=== PATIENT | female | born 1955 | race Caucasian/White ===

== ENCOUNTER 2017-09-11 21:53 | Emergency (ER) | payer OTHER ==
[2017-09-11] MEDS ORDERED: NA CHLORIDE 0.9% 1,000 ML ONE (23:04)
[2017-09-11] MEDS ORDERED: CEFTRIAXONE/SWI 1gm 1 GM/10 ML SYR ONE (23:05)
[2017-09-11 23:13] LABS: Absolute Lymphocytes (CBC) 3.8 K/uL (0.7-4.9); Absolute Monocytes 0.6 K/uL (0.1-1.3); Absolute Neutrophil 4.7 K/uL (1.8-8.0); Basophils % 1.1 % (0-1.3); Eosinophils % 3.1 % (0-4.4); Hematocrit 40.7 % (36.0-45.0); Lymphocytes % 40.3 % (15.3-44.8); MCV 91.7 fL (80-100); Monocytes % 6.4 % (3.3-12.3); RBC Red Blood Cell Count 4.44 M/uL (3.86-4.86)
[2017-09-11] MEDS ORDERED: FENTANYL CITR 100 MCG/2 ML ONE (23:34)
[2017-09-11] MEDS ORDERED: ONDANSETRON 4 MG/2 ML VIAL ONE (23:34)
--- NOTE | 2017-09-11 23:36 | ER ---
Nurse's Notes [facility] Name: Shania High Age: 62 yrs Sex: Female : 1955 Arrival Date: 09/11/2017 Time: 22:04 Bed 30 Private MD: Diagnosis: Cystitis;Diverticular disease of intestine Presentation: 09/11 22:14 Presenting complaint: Patient states: low back pain and urinary frequency since aa1 yesterday. Transition of care: patient was not received from another setting of care. Onset of symptoms was September 10, 2017. Care prior to arrival: None. 22:14 Method Of Arrival: Ambulatory aa1 22:14 Acuity: TOMA 3 aa1 Triage Assessment: 22:16 General: Appears in no apparent distress. comfortable, Behavior is calm, cooperative, aa1 appropriate for age. Historical: - Allergies: 22:16 PENICILLINS; aa1 - Home Meds: 22:16 Gemfibrozil Oral [Active]; Fluoxetine Oral [Active]; Lisinopril Oral [Active]; aa1 Metformin Oral [Active]; - PMHx: 22:16 Diabetes - NIDDM; Hypertension; High Cholesterol; aa1 - PSHx: 22:16 Cholecystectomy; Hysterectomy; aa1 - Immunization history:: Flu vaccine is up to date. - Social history:: Smoking status: Patient/guardian denies using tobacco. - Family history:: not pertinent. Screenin:45 Abuse screen: Denies threats or abuse. Denies injuries from another. Nutritional lk1 screening: No deficits noted. Tuberculosis screening: No symptoms or risk factors identified. Fall Risk None identified. Assessment: 22:40 General: Appears uncomfortable, Behavior is calm, cooperative, appropriate for age. lk1 Pain: Complains of pain in suprapubic area and left lower quadrant Pain currently is 7 out of 10 on a pain scale. Neuro: Level of Consciousness is awake, alert, obeys commands, Oriented to person, place, time, situation. Cardiovascular: Heart tones S1 S2 present Capillary refill is brisk Patient's skin is warm and dry. Respiratory: Airway is patent Respiratory effort is even, unlabored, Respiratory pattern is regular, symmetrical, Breath sounds are clear bilaterally. GI: Abdomen is non-distended, Bowel sounds present X 4 quads. : Reports urinary frequency. EENT: No signs and/or symptoms were reported regarding the EENT system. Derm: No signs and/or symptoms reported regarding the dermatologic system. Musculoskeletal: No deficits noted. Vital Signs: 22:16 BP 133 / 55; Pulse 86; Resp 18; Temp 97.2; Pulse Ox 96% on R/A; Weight 74.84 kg; Height aa1 5 ft. 2 in. (157.48 cm); Pain 3/10; 23:00 BP 103 / 52; Pulse 74; Resp 14; Pulse Ox 95% on R/A; lk1 09/12 00:00 BP 107 / 65; Pulse 72; Resp 15; Pulse Ox 95% on R/A; Pain 0/10; lk1 09/11 22:16 Body Mass Index 30.18 (74.84 kg, 157.48 cm) aa1 ED Course: 09/11 22:04 Patient arrived in ED. al2 22:15 Triage completed. aa1 22:16 Arm band placed on left wrist. Patient placed in an exam room, on a stretcher. aa1 22:21 Kayode Casper MD is Attending Physician. [facility] 22:24 Adina Shah RN is Primary Nurse. lk1 22:35 Inserted saline lock: 20 gauge in right antecubital area, using aseptic technique. lk1 22:[address] nj 22:40 CT completed. Patient tolerated procedure well. Patient moved back from CT. nj 22:45 Patient has correct armband on for positive identification. Bed in low position. Call lk1 light in reach. Adult w/ patient. 23:02 CT Stone Protocol In Process Unspecified. EDMS 23:35 Kayode Casper MD is Referral Physician. alice 09/12 00:27 No provider procedures requiring assistance completed. IV discontinued, intact, lk1 bleeding controlled, No redness/swelling at site. Pressure dressing applied. Administered Medications: 09/11 22:45 Drug: NS 0.9% 1000 ml Route: IV; Rate: 1 bolus; Site: right antecubital; lk1 23:30 Follow up: Response: No adverse reaction; IV Status: Completed infusion lk1 23:00 Drug: fentaNYL (PF) 50 mcg Route: IVP; Site: right antecubital; lk1 23:30 Follow up: Response: No adverse reaction; Pain is decreased lk1 23:00 Drug: Zofran 4 mg Route: IVP; Site: right antecubital; lk1 23:30 Follow up: Response: No adverse reaction; Nausea is decreased lk1 09/12 00:05 Drug: Rocephin - (cefTRIAXone) 1 grams Route: IVPB; Infused Over: 30 mins; Site: right lk1 antecubital; 00:26 Follow up: Response: No adverse reaction; IV Status: Completed infusion lk1 00:25 Drug: Cipro 500 mg Route: PO; lk1 00:26 Follow up: Response: Medication administered at discharge. lk1 Outcome: 09/11 23:36 Discharge ordered by MD. jenkins 09/12 00:31 Discharged to home ambulatory. lk1 Condition: good Discharge instructions given to patient, significant other, Instructed on discharge instructions, follow up and referral plans. medication usage, safety practices, Demonstrated understanding of instructions, follow-up care, medications, Prescriptions given X 2. 00:32 Patient left the ED. lk1 Signatures: Dispatcher [employer] EDMS Santa Moore RN RN [email or web address] Kayode Casper MD MD cha Kluge, Leah, RN RN lk1 Mane, David Castellon, Fabienne [email or web address] Corrections: (The following items were deleted from the chart) 00:28 09/11 22:15 Inserted saline lock: 20 gauge in right antecubital area, using aseptic lk1 technique. lk1
--- NOTE | 2017-09-11 23:36 | EDPHYS ---
Physician Documentation [facility] Name: Shania High Age: 62 yrs Sex: Female : 1955 Arrival Date: 09/11/2017 Time: 22:04 Bed 30 Private MD: Kayode Szymanski HPI: 09/11 22:25 This 62 yrs old Female presents to ER via Ambulatory with complaints of alice POSSIBLE KIDNEY INFECTION. 22:25 The patient presents with abdominal pain. Onset: The symptoms/episode began/occurred 2 alice day(s) ago. The patient complains of pain in the left low back, left mid back, right mid back and right low back. The pain radiates to the left low back, left mid back, right mid back and right low back. Onset: The symptoms/episode began/occurred 1 day(s) ago. Modifying factors: The symptoms are alleviated by nothing. the symptoms are aggravated by nothing. Associated signs and symptoms: The patient has no apparent associated signs or symptoms. Historical: - Allergies: 22:16 PENICILLINS; aa1 - Home Meds: 22:16 Gemfibrozil Oral [Active]; Fluoxetine Oral [Active]; Lisinopril Oral [Active]; aa1 Metformin Oral [Active]; - PMHx: 22:16 Diabetes - NIDDM; Hypertension; High Cholesterol; aa1 - PSHx: 22:16 Cholecystectomy; Hysterectomy; aa1 - Immunization history:: Flu vaccine is up to date. - Social history:: Smoking status: Patient/guardian denies using tobacco. - Family history:: not pertinent. ROS: 22:25 Constitutional: Negative for fever, chills, and weight loss, Eyes: Negative for injury, alice pain, redness, and discharge, ENT: Negative for injury, pain, and discharge, Neck: Negative for injury, pain, and swelling, Cardiovascular: Negative for chest pain, palpitations, and edema, Respiratory: Negative for shortness of breath, cough, wheezing, and pleuritic chest pain, : Negative for injury, bleeding, discharge, and swelling, MS/Extremity: Negative for injury and deformity, Skin: Negative for injury, rash, and discoloration, Neuro: Negative for headache, weakness, numbness, tingling, and seizure, Psych: Negative for depression, anxiety, suicide ideation, homicidal ideation, and hallucinations, Allergy/Immunology: Negative for hives, rash, and allergies, Endocrine: Negative for neck swelling, polydipsia, polyuria, polyphagia, and marked weight changes, Hematologic/Lymphatic: Negative for swollen nodes, abnormal bleeding, and unusual bruising. 22:25 Abdomen/GI: Positive for abdominal pain, of the suprapubic area, right lower quadrant and left lower quadrant. 22:25 Back: Positive for pain at rest, of the lumbar area, low back area and left low back. Exam: 22:25 Constitutional: This is a well developed, well nourished patient who is awake, alert, alice and in no acute distress. Head/Face: Normocephalic, atraumatic. Eyes: Pupils equal round and reactive to light, extra-ocular motions intact. Lids and lashes normal. Conjunctiva and sclera are non-icteric and not injected. Cornea within normal limits. Periorbital areas with no swelling, redness, or edema. ENT: Nares patent. No nasal discharge, no septal abnormalities noted. Tympanic membranes are normal and external auditory canals are clear. Oropharynx with no redness, swelling, or masses, exudates, or evidence of obstruction, uvula midline. Mucous membranes moist. Neck: Trachea midline, no thyromegaly or masses palpated, and no cervical lymphadenopathy. Supple, full range of motion without nuchal rigidity, or vertebral point tenderness. No Meningismus. Chest/axilla: Normal chest wall appearance and motion. Nontender with no deformity. No lesions are appreciated. Cardiovascular: Regular rate and rhythm with a normal S1 and S2. No gallops, murmurs, or rubs. Normal PMI, no JVD. No pulse deficits. Respiratory: Lungs have equal breath sounds bilaterally, clear to auscultation and percussion. No rales, rhonchi or wheezes noted. No increased work of breathing, no retractions or nasal flaring. Back: No spinal tenderness. No costovertebral tenderness. Full range of motion. Female : Normal external genitalia. Skin: Warm, dry with normal turgor. Normal color with no rashes, no lesions, and no evidence of cellulitis. MS/ Extremity: Pulses equal, no cyanosis. Neurovascular intact. Full, normal range of motion. Neuro: Awake and alert, GCS 15, oriented to person, place, time, and situation. Cranial nerves II-XII grossly intact. Motor strength 5/5 in all extremities. Sensory grossly intact. Cerebellar exam normal. Normal gait. Psych: Awake, alert, with orientation to person, place and time. Behavior, mood, and affect are within normal limits. 22:25 Abdomen/GI: Inspection: distension, Bowel sounds: normal, Palpation: mild abdominal tenderness, in the suprapubic area and left lower quadrant, Liver: no appreciated palpable abnormalities, Hernia: not appreciated. Vital Signs: 22:16 BP 133 / 55; Pulse 86; Resp 18; Temp 97.2; Pulse Ox 96% on R/A; Weight 74.84 kg; Height aa1 5 ft. 2 in. (157.48 cm); Pain 3/10; 23:00 BP 103 / 52; Pulse 74; Resp 14; Pulse Ox 95% on R/A; lk1 09/12 00:00 BP 107 / 65; Pulse 72; Resp 15; Pulse Ox 95% on R/A; Pain 0/10; lk1 09/11 22:16 Body Mass Index 30.18 (74.84 kg, 157.48 cm) aa MDM: 09/11 22:21 Patient medically screened. [facility] 22:25 Data reviewed: vital signs, nurses notes, lab test result(s), radiologic studies, CT [facility] scan. 09/11 22:25 Order name: Urine Culture [facility] 09/11 22:29 Order name: CBC with Diff; Complete Time: 23:33 [facility] 09/11 22:25 Order name: CT Stone Protocol [facility] 09/11 22:29 Order name: Comprehensive Metabolic Panel; Complete Time: 23:50 [facility] 09/11 23:00 Order name: Urine Dipstick--Ancillary (enter results); Complete Time: 23:50 2 09/11 22:25 Order name: Urine Dipstick-Ancillary (obtain specimen); Complete Time: 23:07 [facility] Administered Medications: 22:45 Drug: NS 0.9% 1000 ml Route: IV; Rate: 1 bolus; Site: right antecubital; 1 23:30 Follow up: Response: No adverse reaction; IV Status: Completed infusion [facility] 23:00 Drug: fentaNYL (PF) 50 mcg Route: IVP; Site: right antecubital; [facility] 23:30 Follow up: Response: No adverse reaction; Pain is decreased [facility] 23:00 Drug: Zofran 4 mg Route: IVP; Site: right antecubital; lk1 23:30 Follow up: Response: No adverse reaction; Nausea is decreased [facility] 09/12 00:05 Drug: Rocephin - (cefTRIAXone) 1 grams Route: IVPB; Infused Over: 30 mins; Site: right lk1 antecubital; 00:26 Follow up: Response: No adverse reaction; IV Status: Completed infusion 1 00:25 Drug: Cipro 500 mg Route: PO; 1 00:26 Follow up: Response: Medication administered at discharge. [facility] Disposition: 09/11/17 23:36 Discharged to Home. Impression: Cystitis, Diverticular disease of intestine. - Condition is Stable. - Discharge Instructions: Type 2 Diabetes Mellitus, Adult, Diverticulosis, Dysuria, Diabetes Mellitus and Food, Type 2 Diabetes Mellitus, Adult, [id number]. - Prescriptions for Bentyl 20 mg Oral Tablet - take 1 tablet by ORAL route every 6 hours As needed; 20 tablet. Cipro 500 mg Oral Tablet - take 1 tablet by ORAL route every 12 hours for 7 days; 14 tablet. - Medication Reconciliation Form, Thank You Letter, Antibiotic Education, Prescription Opioid Use form. - Follow up: Kayode Casper MD; When: 2 - 3 days; Reason: Recheck today's complaints, Continuance of care, Re-evaluation by your physician. - Problem is new. - Symptoms have improved. Signatures: Dispatcher [employer] EDSanta Irizarry, RN RN aa1 Kayode Casper MD MD cha Kluge, Leah RN RN lk1
[2017-09-11 23:41] LABS: Albumin 4.5 g/dL (3.2-5.5); Bilirubin Total 0.4 mg/dL (0.3-1.2); Protein, Total 7.1 g/dL (6.0-8.3)
[2017-09-11 23:43] LABS: Urine Blood NEGATIVE (NEG); Urine Glucose NEGATIVE (NEG); Urine Protein TRACE (NEG); Urine Specific Gravity 1.025 (1.005-1.030); Urine pH 5.5 (5.0-7.0)
[2017-09-12] MEDS ORDERED: CIPROFLOXACIN HCL 500 MG TAB ONE (00:21)
--- NOTE | 2017-09-12 12:52 | RAD REPORT ---
EXAM DESCRIPTION: CT - Stone Protocol - 09/12/2017 7:13 am CLINICAL HISTORY: Flank pain. COMPARISON: None. TECHNIQUE: Axial images were obtained without oral or IV contrast. Lack of contrast limits solid org an and vascular assessment. The [id number] spans the entirety of the system partially obscuring uppermost abdomen and lung bases. Coronal reformatted images were obtained and reviewed. All CT scans are performed using dose optimization technique as appropriate and may include automated exposure control or mA/KV adjustment according to patient size. FINDINGS: The lower lung scanlon are clear. Cholecystectomy clips. Hepatic fatty infiltration is suspected with a small low-density lesion centrally, probably a small c yst but incompletely assessed on noncontrast stone protocol CT. The spleen appears normal. The pancre as and adrenal glands are normal. No pathologic lymphadenopathy in the abdomen or pelvis. Bilateral punctate nephrolithiasis. No hydronephrosis. No bowel obstruction, free air, free fluid or abscess. Normal appendix noted.Scattered colonic divert iculosis without diverticulitis. No significant bony abnormality. IMPRESSION: Punctate bilateral nephrolithiasis without hydronephrosis. Diffuse fatty liver.
== END 2017-09-12 00:32 | disposition home or self-care (01) ==
LOC: ER 21:53
DX: N30.90 Cystitis, unspecified without hematuria (principal); K57.90 Diverticulosis of intestine, part unspecified, without perforation or abscess without bleeding; I10 Essential (primary) hypertension; E11.9 Type 2 diabetes mellitus without complications; E78.00 Pure hypercholesterolemia, unspecified; Z88.0 Allergy status to penicillin
CPT/HCPCS: 36415; 74176; 76377; 80053; 81003; 85025; 87086; 87088; 96361; 96365; 96375; 99284; J0696; J2405; J3010; J7030